=== PATIENT | male | born 1945 | race Caucasian/White ===

== ENCOUNTER 2017-01-23 09:55 | Outpatient (CLI) | payer MEDICARE, OTHER | END 2017-01-23 09:56 | disposition home or self-care (01) | LOC: SC 09:55 | PROVIDERS: ATTEND Nurse Practitioner Family | DX: G47.33 Obstructive sleep apnea (adult) (pediatric) (principal) | CPT/HCPCS: 99214; G0463; 99212 ==

== ENCOUNTER 2018-02-12 13:13 | Outpatient (CLI) | payer MEDICARE, OTHER | END 2018-02-12 13:14 | disposition home or self-care (01) | LOC: SC 13:13 | PROVIDERS: ATTEND Nurse Practitioner Family | DX: G47.33 Obstructive sleep apnea (adult) (pediatric) (principal) | CPT/HCPCS: 99214; G0463; 99212 ==

== ENCOUNTER 2018-03-18 09:22 | Emergency (ER) | payer MEDICARE, OTHER ==
--- NOTE | 2018-03-18 10:16 | ED Physician Documentation ---
History of Present Illness - Stated complaint Stated Complaint: SIDE PX/GLF - Chief complaint Chief Complaint: General - History obtained from History obtained from: Patient, Family - History of Present Illness Timing: How many hours ago (3) Pain level max: 6 Pain level now: 5 - Additonal information Additional information: Patient is a 72-year-old male who was in the tub today when he slipped fell, landing on the edge of the bathtub on his left ribs. Was out later and coughed, felt a pop and shooting pain into the left upper chest and shoulder area. States pain is better when he does not move. Worse with coughing and movement. Has not taken anything for pain. Does not feel short of breath Review of Systems Constitutional: denies: Fever, Chills Throat: denies: Sore throat Cardiac: denies: Palpitations Respiratory: denies: Dyspnea, Cough GI: denies: Vomiting Skin: denies: Rash Musculoskeletal: denies: Neck pain, Back pain Neurologic: denies: Headache PD PAST MEDICAL HISTORY - Past Medical History Past Medical History: Yes Cardiovascular: Hypertension, High cholesterol, Coronary artery disease Respiratory: Sleep apnea Endocrine/Autoimmune: Type 2 diabetes GI: GERD : None HEENT: None Psych: None Musculoskeletal: None - Past Surgical History Past Surgical History: Yes Cardiovascular: Coronary stent Derm: Skin cancer surgery - Present Medications Home Medications: Ambulatory Orders Medication Instructions Recorded Confirmed Aspirin Chewable [St Von 81 mg PO DAILY 10/10/12 02/15/15 Aspirin] Losartan/Hydrochlorothiazide 1 tab PO DAILY 10/10/12 02/15/15 [Hyzaar 100-25 Tablet] Metformin HCl 500 mg PO BID 10/10/12 02/15/15 Nitroglycerin [Nitrostat] 0.4 mg SL DAILY PRN 10/10/12 02/15/15 Rosuvastatin Calcium [Crestor] 5 mg PO DAILY 10/10/12 02/15/15 Carvedilol [Coreg] 11/18/14 02/15/15 Cetirizine HCl [Zyrtec] 10 mg PO DAILY #30 tablet 11/18/14 02/15/15 Gabapentin 300 mg PO TID #90 capsule 02/15/15 Meloxicam [Mobic] 15 mg PO DAILY PRN #20 tablet 03/18/18 - Allergies Allergies/Adverse Reactions: Allergies Allergy/AdvReac Type Severity Reaction Status Date / Time Penicillins Allergy Severe Respiratory Verified 10/10/12 03:26 atorvastatin calcium * Allergy Intermediate Cramps Verified 10/10/12 03:28 [From Lipitor] pravastatin Allergy Intermediate Cramps Verified 10/10/12 03:29 simvastatin [From Zocor] Allergy Intermediate Cramps Verified 10/10/12 03:26 - Social History Does the pt smoke?: No Smoking Status: Never smoker Does the pt drink ETOH?: No Does the pt have substance abuse?: No - Immunizations Immunizations are current?: Yes - POLST Patient has POLST: No PD ED PE NORMAL - Vitals Vital signs reviewed: Yes - General General: Alert and oriented X 3 - HEENT HEENT: Moist mucous membranes - Neck Neck: Supple, no meningeal sign - Cardiac Cardiac: RRR, Strong equal pulses - Respiratory Respiratory: No respiratory distress, Clear bilaterally, Other (TTP L lower posterior ribs. no crepitus.) - Abdomen Abdomen: Normal bowel sounds, Soft, Non tender, Non distended - Derm Derm: Warm and dry - Neuro Neuro: Alert and oriented X 3 Results - Vitals Vitals: Vital Signs - 24 hr 03/18/18 09:37 Temperature 36.7 C Heart Rate 62 Respiratory 16 Rate Blood Pressure 149/79 H O2 Saturation 98 Oxygen O2 Source Room air - Rads (name of study) cxr Radiology: Prelim report reviewed, EMP read contemporaneously, See rad report (Small left pneumothorax without evidence of tension. Possible acute nondisplaced fracture of at least the left 9th rib. ) rpt cxr Radiology: Prelim report reviewed, EMP read contemporaneously, See rad report (Stable 8 mm left apical pneumothorax. Suspect occult hairline fractures lateral aspect left lower ribs. Stable small left extrathoracic air leak. ) PD MEDICAL DECISION MAKING - ED course Complexity details: reviewed results, re-evaluated patient, considered differential, d/w patient, d/w family, d/w quality improvement consultant ED course: Patient is a 72-year-old male who presents to the emergency department and is found to have left-sided rib fracture, possible multiple hairline fractures. Also has a small left apical pneumothorax. Discussed the case with Dr. Eloy Gage, general surgery on-call who recommends watchful waiting at this time. Patient is also very comfortable with this plan. He was observed in the emergency department for several hours, repeat chest x-ray reveals no change in the pneumothorax size. He would like to go home at this time and was given strict return precautions to the patient and his . He will follow-up with Dr. Gage as an outpatient. An order was also written for his outpatient chest x-ray prior to seeing Dr. Gage. Patient and family counseled regarding signs and symptoms for which I believe and urgent re-evaluation would be necessary. Patient with good understanding of and agreement to plan and is comfortable going home at this time This document was made in part using voice recognition software. While efforts are made to proofread this document, sound alike and grammatical errors may occur. Departure - Departure Disposition: Home, Self Care Clinical Impression: Pneumothorax on left Rib fracture Qualifiers: Encounter type: initial encounter Rib fracture type: single rib Fracture type: closed Laterality: left Qualified Code(s): S22.32XA - Fracture of one rib, left side, initial encounter for closed fracture Condition: Good Instructions: ED Fx Rib, ED Pneumothorax Blunt Trauma Follow-Up: Tay Schmidt MD [Primary Care Provider] - Eloy Gage MD [Provider Admit Priv/Credential] - 03/20/18 Prescriptions: Meloxicam [Mobic] 15 mg PO DAILY PRN #20 tablet PRN Reason: pain Comments: Call Dr. Gage's office for an appointment on Sunday. You should have the repeat chest x-ray prior to your visit that day. Return sooner if you worsen including uncontrolled pain or difficulty breathing. We did discuss a chest tube today, but you have elected conservative treatment at this time. Discharge Date/Time: 03/18/18 13:50
--- NOTE | 2018-03-18 10:47 | XRAY Report ---
Reason: fall, L rib pain Procedure Date: 03/18/2018 Accession Number: [id number] / [id number] Procedure: XR - Ribs w/PA Chest LT CPT Code: FULL RESULT: EXAM: LEFT RIB RADIOGRAPHY EXAM DATE: 03/18/2018 10:27 AM. CLINICAL HISTORY: Fall, L rib pain. COMPARISON: None. TECHNIQUE: 1 view of the chest and 2 views of the ribs. FINDINGS: Bones: Possible acute nondisplaced fracture at the lateral aspect of the left ninth rib. No displaced fracture. Lungs: No focal consolidation. Small left pneumothorax with 8 mm pleural separation at the apex. No right pneumothorax. Mediastinum: Heart and mediastinal contours are unremarkable. Other: Small inferior lateral left chest wall subcutaneous gas centered over the 8th through 10th ribs. IMPRESSION: 1. Small left pneumothorax without evidence of tension. 2. Possible acute nondisplaced fracture of at least the left 9th rib. RADIA The above findings were discussed with Dr. Onesimo Dumont by Dr. Maximus Salazar at 10:40 hrs on 03/18/18.
[2018-03-18 12:36] VITALS: BP 118/74
--- NOTE | 2018-03-18 13:16 | XRAY Report ---
Reason: upright, L ptx compare to earlier. Procedure Date: 03/18/2018 Accession Number: [id number] / [id number] Procedure: XR - Chest 1 View X-Ray CPT Code: 26049 FULL RESULT: EXAM: CHEST RADIOGRAPHY EXAM DATE: 03/18/2018 12:59 PM. CLINICAL HISTORY: Left-sided chest pain. Follow-up left pneumothorax. COMPARISON: RIBS W/PA CHEST LT 03/18/2018 10:18 AM. TECHNIQUE: 1 view. FINDINGS: Lungs/Pleura: Stable 8 mm left apical pneumothorax. New small amount of pleural thickening left lower lateral chest wall in the area of the lateral aspects of the left seventh, eighth and ninth ribs. No fractures confidently identified. Stable small amount of left extrathoracic air in the area of the pleural thickening. Mediastinum: Within exam limitations, the cardiomediastinal contour is normal. Other: None. IMPRESSION: 1. Stable 8 mm left apical pneumothorax. 2. Suspect occult hairline fractures lateral aspect left lower ribs. 3. Stable small left extrathoracic air leak. RADIA
[2018-03-18] MEDS ORDERED: LIDOCAINE PATCH 5% TOP STA (13:32)
[2018-03-18] MEDS ORDERED: MELOXICAM 7.5 MG TABLET PO STA (13:43)
[2018-03-19] MEDS ORDERED: MELOXICAM 7.5 MG TABLET PO SCH (09:00)
== END 2018-03-18 13:50 | disposition home or self-care (01) ==
LOC: ED 09:22
DX: S27.0XXA Traumatic pneumothorax, initial encounter (principal); S22.32XA Fracture of one rib, left side, initial encounter for closed fracture; M25.512 Pain in left shoulder; W18.2XXA Fall in (into) shower or empty bathtub, initial encounter; Y93.E1 Activity, personal bathing and showering; I10 Essential (primary) hypertension; E11.9 Type 2 diabetes mellitus without complications; Z79.84 Long term (current) use of oral hypoglycemic drugs; Z79.82 Long term (current) use of aspirin
CPT/HCPCS: 71045; 71101; 99283; 99284; A9270

== ENCOUNTER 2018-03-20 11:01 | Outpatient (CLI) | payer MEDICARE, OTHER ==
--- NOTE | 2018-03-20 16:00 | XRAY Report ---
Reason: PNEUMOTHORAX Procedure Date: 03/20/2018 Accession Number: [id number] / [id number] Procedure: XR - Chest 2 View X-Ray CPT Code: 17329 FULL RESULT: EXAM: CHEST RADIOGRAPHY EXAM DATE: 03/20/2018 11:43 AM. CLINICAL HISTORY: PNEUMOTHORAX. COMPARISON: Chest 03/18/2018. TECHNIQUE: 2 views. FINDINGS: Lungs/Pleura: No focal opacities evident. No pleural effusion. There appears to be a very subtle edge at the lateral left apex which could represent a very small persistent pneumothorax. Normal volumes. Mediastinum: Heart and mediastinal contours are unremarkable. IMPRESSION: Possible residual tiny left pneumothorax RADIA
== END 2018-03-20 11:02 | disposition home or self-care (01) ==
LOC: DI 11:01
PROVIDERS: ATTEND Internal Medicine Gastroenterology
DX: J93.9 Pneumothorax, unspecified (principal)
CPT/HCPCS: 71046

== ENCOUNTER 2018-03-24 23:11 | Emergency (ER) | payer MEDICARE, OTHER ==
--- NOTE | 2018-03-24 23:14 | ED Physician Documentation ---
History of Present Illness - Stated complaint Stated Complaint: HIGH BP/LOW PULSE RATE - History obtained from History obtained from: Patient, Family - History of Present Illness Timing: Today Pain level now: 0 Improved by: nothing Worsened by: no exacerbating factors - Additonal information Additional information: patient was measuring blood sugar and blood pressure as per his routine prior to going to sleep. Blood sugar was 135. He was concerned that his blood pressure was 192/91. He waited 20 minutes and rechecked blood pressure, found it was now 197/97 with pulse 62 and thus came to ED. Only symptoms are "mild pulsating in ears" (per patient) and very mild dizziness/lightheadedness. Denies chest pain/pressure/tightness, denies dyspnea. Review of Systems Eyes: denies: Loss of vision, Decreased vision Cardiac: reports: Reviewed and negative Respiratory: reports: Reviewed and negative GI: reports: Reviewed and negative Musculoskeletal: reports: Reviewed and negative Neurologic: reports: Reviewed and negative PD PAST MEDICAL HISTORY - Past Medical History Cardiovascular: Hypertension, High cholesterol, Coronary artery disease Respiratory: Sleep apnea Endocrine/Autoimmune: Type 2 diabetes GI: GERD : None HEENT: None Psych: None Musculoskeletal: None - Past Surgical History Past Surgical History: Yes Cardiovascular: Coronary stent Derm: Skin cancer surgery - Present Medications Home Medications: Ambulatory Orders Medication Instructions Recorded Confirmed Aspirin Chewable [St Von 81 mg PO DAILY 10/10/12 02/15/15 Aspirin] Losartan/Hydrochlorothiazide 1 tab PO DAILY 10/10/12 02/15/15 [Hyzaar 100-25 Tablet] Metformin HCl 500 mg PO BID 10/10/12 02/15/15 Nitroglycerin [Nitrostat] 0.4 mg SL DAILY PRN 10/10/12 02/15/15 Rosuvastatin Calcium [Crestor] 5 mg PO DAILY 10/10/12 02/15/15 Carvedilol [Coreg] 11/18/14 02/15/15 Cetirizine HCl [Zyrtec] 10 mg PO DAILY #30 tablet 11/18/14 02/15/15 Gabapentin 300 mg PO TID #90 capsule 02/15/15 Meloxicam [Mobic] 15 mg PO DAILY PRN #20 tablet 03/18/18 - Allergies Allergies/Adverse Reactions: Allergies Allergy/AdvReac Type Severity Reaction Status Date / Time Penicillins Allergy Severe Respiratory Verified 03/24/18 23:21 atorvastatin calcium * Allergy Intermediate Cramps Verified 03/24/18 23:21 [From Lipitor] pravastatin Allergy Intermediate Cramps Verified 03/24/18 23:21 simvastatin [From Zocor] Allergy Intermediate Cramps Verified 03/24/18 23:21 - Social History Does the pt smoke?: No Smoking Status: Never smoker Does the pt drink ETOH?: No Does the pt have substance abuse?: No - Immunizations Immunizations are current?: Yes - POLST Patient has POLST: No PD ED PE NORMAL - Vitals Vital signs reviewed: Yes - General General: Alert and oriented X 3, No acute distress, Well developed/nourished - HEENT HEENT: Moist mucous membranes - Cardiac Cardiac: RRR, No murmur, No gallop, No rub - Respiratory Respiratory: No respiratory distress, Clear bilaterally - Abdomen Abdomen: Soft, Non tender - Derm Derm: Normal color - Extremities Extremities: No edema - Neuro Neuro: Alert and oriented X 3, furnishings conservator 2-12 intact, No motor deficit, No sensory deficit, Normal speech Eye Opening: Spontaneous Motor: Obeys Commands Verbal: Oriented GCS Score: 15 Results - Vitals Vitals: Vital Signs - 24 hr 03/24/18 03/24/18 03/25/18 23:18 23:34 00:06 Temperature 36.2 C L Heart Rate 65 59 L Respiratory 18 14 Rate Blood Pressure 183/84 H 171/77 H Blood Pressure 182/84 H [Left] Blood Pressure 189/86 H [Right] O2 Saturation 98 96 03/25/18 00:39 Temperature Heart Rate 56 L Respiratory 16 Rate Blood Pressure 169/79 H Blood Pressure [Left] Blood Pressure [Right] O2 Saturation 93 Oxygen O2 Source Room air - Labs Labs: Laboratory Tests 03/24/18 03/24/18 03/24/18 23:28 23:28 23:28 WBC 6.5 RBC 4.54 L Hgb 13.6 L Hct 39.0 L MCV 86.1 MCH 30.1 MCHC 34.9 RDW 13.6 Plt Count 268 MPV 7.2 L Neut # (Auto) 3.3 Lymph # (Auto) 2.1 [place] # (Auto) 0.7 Eos # (Auto) 0.3 Baso # (Auto) 0.0 Absolute Nucleated RBC 0.00 Nucleated RBC % 0.1 Sodium 133 L Potassium 3.8 Chloride 96 L Carbon Dioxide 28 Anion Gap 9.0 BUN 20 Creatinine 1.0 Estimated GFR (MDRD) 74 L Glucose 121 H Calcium 8.8 Troponin I < 0.04 PD MEDICAL DECISION MAKING - ED course Complexity details: reviewed results, re-evaluated patient, considered differential, d/w patient, d/w family Departure - Departure Disposition: 01 Home, Self Care Clinical Impression: Hypertension Condition: Good Instructions: ED Hypertension Conf Out Of Control Follow-Up: Tay Schmidt MD [Primary Care Provider] - Discharge Date/Time: 03/25/18 01:05
[2018-03-24 23:46] LABS: BASOPHILS % (AUTO) 0.6 %; EOSINOPHILS # (AUTO) 0.3 10^3/uL (0.0-0.7); EOSINOPHILS % (AUTO) 4.9 %; HGB - HEMOGLOBIN 13.6 g/dL (14.0-18.0); LYMPHOCYTES # (AUTO) 2.1 10^3/uL (1.5-3.5); LYMPHOCYTES % (AUTO) 32.7 %; MEAN CORPUSCULAR HEMOGLOBIN 30.1 pg (27.0-31.0); MEAN CORPUSCULAR HGB CONC 34.9 g/dL (32.0-36.0); MEAN CORPUSCULAR VOLUME 86.1 fL (80.0-94.0); MEAN PLATELET VOLUME 7.2 fL (7.4-11.4); MONOCYTES # (AUTO) 0.7 10^3/uL (0.0-1.0); MONOCYTES % (AUTO) 11.4 %; NEUTROPHILS # (AUTO) 3.3 10^3/uL (1.5-6.6); NEUTROPHILS % (AUTO) 50.4 %; PLT - PLATELET COUNT 268 10^3/uL (130-450); RED BLOOD COUNT 4.54 10^6/uL (4.70-6.10); RED CELL DISTRIBUTION WIDTH 13.6 % (12.0-15.0); WHITE BLOOD COUNT 6.5 x10^3/uL (4.8-10.8)
[2018-03-24 23:50] LABS: CALCIUM 8.8 mg/dL (8.5-10.3)
[2018-03-25 00:40] VITALS: BP 169/79
== END 2018-03-25 01:05 | disposition home or self-care (01) ==
LOC: ED 23:11
DX: I10 Essential (primary) hypertension (principal); E11.9 Type 2 diabetes mellitus without complications; Z79.84 Long term (current) use of oral hypoglycemic drugs; Z79.82 Long term (current) use of aspirin
CPT/HCPCS: 36415; 80048; 84484; 85025; 99283

== ENCOUNTER 2019-03-05 09:07 | Outpatient (CLI) | payer MEDICARE, OTHER ==
[2019-03-05 10:09] VITALS: BP 134/60
--- NOTE | 2019-03-05 10:09 | SLEEP CARE CONSULTATION ---
Information from patient questionnaire entered by Li Mendoza. I have reviewed and concur with the information entered by Li Mendoza. This document represents the service I personally performed and the decisions made by me, Irma Moulton, RN, MSN, [employer]ICIAN. History of Present Illness Previous diagnosis: Severe, Obstructive Sleep Apnea-Hypopnea Syndrome AHI: 45 Reason for CPAP/BiPAP follow up: annual Equipment type: CPAP Equipment obtained from: [employer] Mask style: Nasal (wisp) Mask brand: Respironics Backup mask available: Yes Last cushion change: a couple days ago with filter Prior sleep studies: Yes Year and Where: 2009 [facility] CPAP Compliance Data - Data Reviewed with Patient Average duration of nightly device use: 6h 20m Compliance rate %: 94.4 Current pressure setting (cmH2O): 5-10 Humidity settin Heated hose settin Average residual AHI: 2.2 Subjective Missed days of use due to: reports: illness (hospitalized unexpectedly for pacemaker insertion) Patient concerns: reports: condensation in mask/hose (rare - adjusts heated hose), nasal congestion (chronic - does not interfer with CPAP - uses Afrin rarely - informed of risks and not to use more than 3 days), dry mouth, nose, throat (rare ). denies: aerophagia, mask discomfort, air blowing in eyes, mask leak noise, epistaxis Observed to snore while using device: No Current pressure setting perceived as: comfortable On therapy, patient: reports: sleeping better, awakening more refreshed, being more awake and alert during the day, more rested overall (especially since pacemaker implant). denies: drowsiness while driving Initial Lamont Sleepiness Scale score: 3 Current Lamont Sleepiness Scale score: 8 Allergies and Home Medications Known drug allergies: Yes (penicillin, some statins) Home medication list reviewed: Yes Allergy and home medication list: Medication Name (generic/name brand) Strength & Dosage Crestor (Rosuvastatin) 10mg tab one daily Hyzaar (Hydrochlorothiazide-Losartan) 25-100mg tab one daily Metformin HCL 500mg tab one twice daily Carvedilol 12.5mg tab twice daily Montelucast 10mg daily Aspirin 81mg Allergies: Penicillin V Potassium - some statins Review of Systems Review of systems same as previous: No (shortness of breath and fatigue and holter monitor indicating pacemaker ) Physical Exam Blood Pressure: 134/60 Cuff size: long Heart Rate: 63 O2 Saturation: 97 Height: 6 ft 0.5 in Weight: 238 lb 3.2 oz Weight change since last visit: 12 Body Mass Index: 31.8 BMI Classification: Obesity Class 1 Impression and Plan 1. Obstructive Sleep Apnea-Hypopnea Syndrome, severe, with good treatment compliance and good apnea control. On CPAP therapy, the patient has better sleep quality and is more rested overall. He has been losing weight with diet changes for health. We discussed the impact of his obesity to his sleep apnea risk / pressure requirements, diabetes and overall health. I showed him where his current weight put him on the BMI chart. He is advised to continue to lose weight and informed of symptoms to report for pressure adjustment. In discussion of treatment for nasal congestion, patient advised not to use Afrin more than 3 days as it will exacerbate symptoms. Patient replied he only uses 1-2 days in a row on rare occasion. Patient's apnea severity and rationale for treatment to reduce apnea, improve sleep quality and reduce cardiovascular and cerebrovascular events was reviewed. I also reviewed the benefit of consistent device use of CPAP for his hypertension, cardiac disease, arrhythmia, diabetes. I also reviewed PaP cleaning methods when inquiring of current habits and reference given. He is advised to wash hose weekly and not randomly with rationale. * Continue CPAP pressure at 5-10 cmH2O Notify me if snoring with mask or feeling that the pressure is too much or too little * Attempt to lose weight * Return for follow up in 1 year , or sooner if concerns arise I spent 100% of this 28 minute visit face to face with the patient with greater than 50% of this was spent time counseling the patient and coordination of care.
== END 2019-03-05 09:08 | disposition home or self-care (01) ==
LOC: SC 09:07
PROVIDERS: ATTEND Nurse Practitioner Family
DX: G47.33 Obstructive sleep apnea (adult) (pediatric) (principal); E66.9 Obesity, unspecified; Z68.31 Body mass index [BMI] 31.0-31.9, adult
CPT/HCPCS: 99214; G0463; 99212

== ENCOUNTER 2019-04-28 13:46 | Emergency (ER) | payer MEDICARE, OTHER ==
[2019-04-28] MEDS ORDERED: BUFFERED LIDOCAINE 10 ML SYRINGE SUBQ STA (15:05)
--- NOTE | 2019-04-28 15:06 | ED Physician Documentation ---
PD HPI LOWER EXT INJURY - Stated complaint Stated Complaint: RT KNEE PX - Chief complaint Chief Complaint: Ext Problem - History obtained from History obtained from: Patient (6 days of painful atraumatic swelling on the front of the right knee without fevers or chills.) Review of Systems Constitutional: denies: Fever, Chills Cardiac: reports: Reviewed and negative Respiratory: reports: Reviewed and negative PD PAST MEDICAL HISTORY - Past Medical History Past Medical History: Yes Cardiovascular: Hypertension, High cholesterol, Coronary artery disease Respiratory: Sleep apnea Neuro: None Endocrine/Autoimmune: Type 2 diabetes GI: GERD : None HEENT: None Psych: None Musculoskeletal: None Derm: None - Past Surgical History Past Surgical History: Yes Cardiovascular: Coronary stent, Pacemaker Derm: Skin cancer surgery - Present Medications Home Medications: Ambulatory Orders Medication Instructions Recorded Confirmed Aspirin Chewable [St Von 81 mg PO DAILY 10/10/12 02/15/15 Aspirin] Losartan/Hydrochlorothiazide 1 tab PO DAILY 10/10/12 02/15/15 [Hyzaar 100-25 Tablet] Metformin HCl 500 mg PO BID 10/10/12 02/15/15 Nitroglycerin [Nitrostat] 0.4 mg SL DAILY PRN 10/10/12 02/15/15 Rosuvastatin Calcium [Crestor] 5 mg PO DAILY 10/10/12 02/15/15 Carvedilol [Coreg] 11/18/14 02/15/15 Cetirizine HCl [Zyrtec] 10 mg PO DAILY #30 tablet 11/18/14 02/15/15 Gabapentin 300 mg PO TID #90 capsule 02/15/15 Meloxicam [Mobic] 15 mg PO DAILY PRN #20 tablet 03/18/18 Cephalexin [Keflex] 500 mg PO Q6H #28 capsule 04/28/19 - Allergies Allergies/Adverse Reactions: Allergies Allergy/AdvReac Type Severity Reaction Status Date / Time Penicillins Allergy Severe Respiratory Verified 04/28/19 14:05 atorvastatin calcium * Allergy Intermediate Cramps Verified 04/28/19 14:05 [From Lipitor] pravastatin Allergy Intermediate Cramps Verified 04/28/19 14:05 simvastatin [From Zocor] Allergy Intermediate Cramps Verified 04/28/19 14:05 - Social History Does the pt smoke?: No Smoking Status: Never smoker Does the pt drink ETOH?: No Does the pt have substance abuse?: No - Immunizations Immunizations are current?: Yes - POLST Patient has POLST: No PD ED PE NORMAL - Vitals Vital signs reviewed: Yes - General General: Alert and oriented X 3, No acute distress - Extremities Extremities: Other (He has what appears to be septic prepatellar bursitis. No bony tenderness of the right knee. Range of motion is normal. His gait is normal.) - Neuro Neuro: Alert and oriented X 3, Normal speech Results - Vitals Vitals: Vital Signs - 24 hr 04/28/19 14:06 Temperature 36.4 C L Heart Rate 59 L Respiratory 18 Rate Blood Pressure 141/67 H O2 Saturation 99 Oxygen O2 Source Room air Procedures - Abscess I&D (location) R prepatellar bursa Preparation: Chlorhexadine, Lidocaine 1% Incision: Incised with scalpel, Loculations broken, Packed (with 1/4" packing), Culture obtained. No: Purulent drainage (clearish, about 8ml) Other: Pt tolerated well, Dressing applied, Antibiotic prescribed Departure - Departure Disposition: 01 Home, Self Care Clinical Impression: Bursitis, prepatellar, right Condition: Good Record reviewed to determine appropriate education?: Yes Instructions: ED Bursitis Prescriptions: Cephalexin [Keflex] 500 mg PO Q6H #28 capsule Comments: We are performing a wound culture, the results should be done in 48-72 hours. If antibiotic change is necessary we will call you. Return if worse in the meantime, especially if you develop increased pain, fevers, cannot keep down the medication. Otherwise follow-up with your physician in approximately 2-3 days For recheck and packing removal.
[2019-04-28 15:41] VITALS: BP 139/70
== END 2019-04-28 15:41 | disposition home or self-care (01) ==
LOC: ED 13:46
DX: M70.41 Prepatellar bursitis, right knee (principal); I10 Essential (primary) hypertension; E11.9 Type 2 diabetes mellitus without complications; Z79.84 Long term (current) use of oral hypoglycemic drugs; Z79.82 Long term (current) use of aspirin
CPT/HCPCS: 27301; 87070; 87181; 87205; 99283

== ENCOUNTER 2020-03-02 08:25 | Outpatient (CLI) | payer MEDICARE, OTHER ==
--- NOTE | 2020-03-02 09:05 | SLEEP CARE CONSULTATION ---
Information from patient questionnaire entered by Jael Ji. I have reviewed and concur with the information entered by Jael Ji. This document represents the service I personally performed and the decisions made by , Alia Cisneros ARNP. History of Present Illness Service Date and Time: 03/02/2020824 Previous diagnosis: Severe, Obstructive Sleep Apnea-Hypopnea Syndrome AHI: 45 (in 2009) Reason for follow up: annual (Last seen 2018) Equipment type: CPAP Equipment obtained from: [employer] (getting supplies as needed) Mask style: Nasal (wisp) Backup mask available: Yes (old mask) Last cushion change: few days ago Prior sleep studies: Yes Year and Where: 2009 - [facility] HPI additional information: CUUAHTEMOC ABREU JR was diagnosed to have severe, AHI 45, obstructive sleep apnea- hypopnea syndrome and returned today for CPAP therapy annual follow-up. Sleep Study - Results Prior sleep studies: Yes Year and Where: 2009 [facility] CPAP Compliance Data - Data Reviewed with Patient Average duration of nightly device use: 6.75 Compliance rate %: 99.4 (180 days) Current pressure setting (cmH2O): 5-10 Humidity settin Heated hose settin Average residual AHI: 2.8 Central apnea: 0.0 Obstructive apnea: 0.1 Average large leak: 30 sec Subjective Patient concerns: reports: nasal congestion. denies: aerophagia, mask discomfort, air blowing in eyes, mask leak noise, condensation in mask/hose, dry mouth, nose, throat, epistaxis, other Observed to snore while using device: No Current pressure setting perceived as: comfortable On therapy, patient: reports: sleeping better, awakening more refreshed, being more awake and alert during the day, more rested overall. denies: drowsiness while driving Initial [place] Sleepiness Scale score: 3 (in 2012) Current [place] Sleepiness Scale score: 6 Allergies and Home Medications Drug allergies reviewed: Yes (penicillin, statins) Home medication list reviewed: Yes (stopped HCTZ) Allergy and home medication list: aspirin cetirizine montelukast losartan rosuvastatin Metformin carvedilol gabapentin eliquis for irregular heartbeat Review of Systems Review of systems same as previous: No (August 2019, heart monitor showing irregular heartrate with pauses (7 secs)) Cardiovascular: reports: irregular heart rate or pulse (Pacemaker placed in September 2019) Physical Exam Heart Rate: 60 O2 Saturation: 96 Height: 6 ft 1 in Weight: 245 lb Body Mass Index: 32.3 BMI Classification: Obese Impression and Plan 1. Obstructive Sleep Apnea-Hypopnea Syndrome, severe, with good treatment compliance and good apnea control. On CPAP therapy, there is improved sleep quality and feels more rested overall. He is doing well without any issues on his CPAP therapy. He did have an arrhythmia found in on a heart monitor with a 7 second pause and was fitted with a pacemaker. He is also on Eliquis. He is following up with cardiology for this condition. Patient's apnea severity and rationale for treatment to reduce apnea, improve sleep quality and reduce cardiovascular and cerebrovascular events was reviewed. I also reviewed the benefit of consistent device use of CPAP for hypertension, cardiac disease, arrhythmia, and diabetes. * Continue auto CPAP pressure at 5-10 cmH2O * Notify me if snoring with mask or feeling that the pressure is too much or too little * Attempt to lose weight * Call this office if any problems using CPAP * Return for follow up in 1 year, or sooner if concerns arise Time Spent with Patient (minutes): 23
== END 2020-03-02 08:26 | disposition home or self-care (01) ==
LOC: SC 08:25
PROVIDERS: ATTEND Nurse Practitioner Family
DX: G47.33 Obstructive sleep apnea (adult) (pediatric) (principal); E66.9 Obesity, unspecified; Z68.32 Body mass index [BMI] 32.0-32.9, adult
CPT/HCPCS: 99213; G0463; 99212

== ENCOUNTER 2020-07-29 14:49 | Emergency (ER) | payer MEDICARE, OTHER ==
[2020-07-29] MEDS ORDERED: TETANUS/DIPHTHERIA/PERTUSSIS 0.5 ML SYRINGE IM ONE (15:09)
--- NOTE | 2020-07-29 16:20 | XRAY Report ---
PROCEDURE: Finger(s) LT INDICATIONS: avulsed tissue TECHNIQUE: PA view of the hand and 2 views of the index finger obtained. COMPARISON: None FINDINGS: Bones: There is no dilatation of the tuft of the second distal phalanx. Moderate degenerative changes are seen at the first metacarpophalangeal joint. Soft tissues: Soft tissue irregularity is seen at the distal second finger with overlying dressing ma terial. No definite radiopaque foreign body is identified. IMPRESSION: Amputation of the distal tuft of the second distal phalanx with overlying soft tissue irregularity. Reviewed by: Juan Gordon MD on 07/29/2020 4:18 PM PST Approved by: Juan Gordon MD on 07/29/2020 4:18 PM PST Station ID: [id number]
[2020-07-29] MEDS ORDERED: TRANEXAMIC ACID 1,000 MG/10 ML VIAL NAS STA (16:36)
[2020-07-29] MEDS ORDERED: BUFFERED LIDOCAINE 10 ML SYRINGE SUBQ STA (16:48)
--- NOTE | 2020-07-29 17:32 | ED Physician Documentation ---
History of Present Illness - Stated complaint Stated Complaint: LT FINGER INJ - Chief complaint Chief Complaint: Laceration - History obtained from History obtained from: Patient - Additonal information Additional information: 75yM with pmh afib on eliquis p/w L distal finger amputation just [employer] while using power tool with exposure of distal phalanx. patient unsure of last tdap. pain is constant throbbing mild, nonradiating, localized to L second finger at distal aspect. denies foreign body or other injury. Review of Systems Skin: reports: Laceration (s) Musculoskeletal: reports: Extremity pain Neurologic: denies: Numbness PD PAST MEDICAL HISTORY - Past Medical History Cardiovascular: Hypertension, High cholesterol, Coronary artery disease Respiratory: Sleep apnea Neuro: None Endocrine/Autoimmune: Type 2 diabetes GI: GERD : None HEENT: None Psych: None Musculoskeletal: None Derm: None - Past Surgical History Past Surgical History: Yes Cardiovascular: Coronary stent, Pacemaker Derm: Skin cancer surgery - Present Medications Home Medications: Ambulatory Orders Medication Instructions Recorded Confirmed Aspirin Chewable [St Von 81 mg PO DAILY 10/10/12 07/29/20 Aspirin] Metformin HCl 500 mg PO BID 10/10/12 07/29/20 Rosuvastatin Calcium [Crestor] 5 mg PO DAILY 10/10/12 07/29/20 Carvedilol [Coreg] 37.5 mg PO DAILY 11/18/14 07/29/20 Cetirizine HCl [Zyrtec] 10 mg PO DAILY #30 tablet 11/18/14 07/29/20 Gabapentin 300 mg PO TID #90 capsule 02/15/15 07/29/20 Apixaban [Eliquis] 5 mg PO BID 07/29/20 07/29/20 Montelukast [Singulair] 10 mg PO DAILY 07/29/20 07/29/20 cephALEXin [Keflex] 500 mg PO Q6H #28 07/29/20 - Allergies Allergies/Adverse Reactions: Allergies Allergy/AdvReac Type Severity Reaction Status Date / Time Penicillins Allergy Severe Respiratory Verified 07/29/20 14:58 atorvastatin calcium * Allergy Intermediate Cramps Verified 07/29/20 14:58 [From Lipitor] pravastatin Allergy Intermediate Cramps Verified 07/29/20 14:58 simvastatin [From Zocor] Allergy Intermediate Cramps Verified 07/29/20 14:58 - Social History Does the pt smoke?: No Smoking Status: Never smoker Does the pt drink ETOH?: No Does the pt have substance abuse?: No - Immunizations Immunizations are current?: Yes - POLST Patient has POLST: No PD ED PE NORMAL - Vitals Vital signs reviewed: Yes - General General: Alert and oriented X 3, No acute distress - Extremities Extremities: Other (L second finger amputation just distal to dip joint without nail matrix involvement. distal phalanx visibly exposed. mild oozing blood, otherwise hemostatic) Results - Vitals Vitals: Vital Signs - 24 hr 07/29/20 07/29/20 07/29/20 15:00 15:36 17:35 Temperature 36.3 C L 36.7 C 36.4 C L Heart Rate 60 62 62 Respiratory 12 14 14 Rate Blood Pressure 181/80 H 162/76 H 158/77 H O2 Saturation 100 100 99 07/29/20 17:46 Temperature Heart Rate 64 Respiratory 14 Rate Blood Pressure 154/82 H O2 Saturation 99 Oxygen O2 Source Room air Procedures - Laceration (location) Finger left Length in cm: 1 Wound type: Irregular, Into subcut fat, Exposure of bone Neurovascular status: Sensory intact, Motor intact, Other (bleeding controlled with direct pressure, txa, and finger tourniquet. bone rangeur used to chip away at distal phalanx. extensive irrigation undertaken.) Anesthesia: Lidocaine 1% (digital block), With bicarb, Volume - enter ml (4) Wound preparation: Betadine, Irrigated copiously NS, Wound explored, To the base, debridement of wound edges (traumatic laceration/avulsion), Multiple flaps aligned, Extensive undermining Skin layer closure: Nylon, Interrupted, Size #-0 - enter number (4), Sutures - enter # (5) Other: Patient tolerated well, No complications, Neurovascular intact, Dressing applied, Tetanus booster given PD MEDICAL DECISION MAKING - ED course ED course: d/w Dr. Krueger who recommended I irrigate copiously, cut away bone of distal phalanx, and align the flaps of the amputated finger. this was done without incident and then xeroform gauze soaked in txa was applied. ebl minimal. patient tolerated well. he will f/u with ortho in 1 week for wound check. strict return precautions given. Departure - Departure Disposition: 01 Home, Self Care Clinical Impression: Amputation of finger Condition: Good Instructions: ED Laceration All Follow-Up: Frantz Krueger MD [Provider Admit Priv/Credential] - Prescriptions: cephALEXin [Keflex] 500 mg PO Q6H #28 Comments: You were seen in the emergency department for amputated index finger. We chipped off the bone and sewed up the stump after cleaning thoroughly. You also got a tetanus shot. take your antibiotics. Keep an eye out for the signs of infection we discussed. return to the ED for any new or worsening symptoms or other concerns. Follow up in orthopedics clinic with Dr. Krueger in 1 week for wound check. Your stitches should be removed in 14 days either here or in clinic/urgent care. Discharge Date/Time: 07/29/20 17:47
[2020-07-29 17:47] VITALS: BP 154/82
== END 2020-07-29 17:47 | disposition home or self-care (01) ==
LOC: ED 14:49
DX: S68.111A Complete traumatic metacarpophalangeal amputation of left index finger, initial encounter (principal); W29.8XXA Contact with other powered hand tools and household machinery, initial encounter; E11.9 Type 2 diabetes mellitus without complications; Z79.84 Long term (current) use of oral hypoglycemic drugs
CPT/HCPCS: 12041; 90471; 99283

== ENCOUNTER 2021-02-08 09:03 | Outpatient (CLI) | payer MEDICARE, OTHER ==
--- NOTE | 2021-02-08 09:50 | SLEEP CARE CONSULTATION ---
Information from patient questionnaire entered by Jael Ji. I have reviewed and concur with the information entered by Jael Ji. This document represents the service I personally performed and the decisions made by , Alia Cisneros ARNP. History of Present Illness Service Date and Time: 02/08/2021 0903 Previous diagnosis: Severe, Obstructive Sleep Apnea-Hypopnea Syndrome AHI: 45 (in 2009) Reason for follow up: annual (last seen 02/2020) Equipment type: CPAP Equipment obtained from: [employer] (getting supplies as needed) Mask style: Nasal Mask brand: Respironics (wisp) Backup mask available: Yes (old mask) Last cushion change: not sure, maybe a month ago Prior sleep studies: Yes Year and Where: 2009 - [facility] Type of Sleep Study: Polysomnography HPI additional information: CUAUHTEMOC ABREU JR was diagnosed to have severe, AHI 45, obstructive sleep apnea- hypopnea syndrome and returned today for CPAP therapy annual follow-up. CPAP Compliance Data - Data Reviewed with Patient Average duration of nightly device use: 7 hr 10 min Compliance rate %: 99.4 (180 days) Current pressure setting (cmH2O): 5-10 Humidity settin Heated hose settin Average residual AHI: 3.3 Average large leak: 39 sec Subjective Patient concerns: reports: nasal congestion (he has chronic rhinitis), dry mouth, nose, throat (dry mouth). denies: aerophagia, mask discomfort, air blowing in eyes, mask leak noise, condensation in mask/hose, epistaxis, other Observed to snore while using device: No Current pressure setting perceived as: comfortable On therapy, patient: reports: sleeping better, awakening more refreshed, being more awake and alert during the day, more rested overall. denies: drowsiness while driving Initial [place] Sleepiness Scale score: 3 (in 2012) Current [place] Sleepiness Scale score: 5 Allergies and Home Medications Home medication list reviewed: Yes (no changes) Review of Systems Review of systems same as previous: Yes (left thumb partial removal due to melanoma) Physical Exam Heart Rate: 65 O2 Saturation: 97 Height: 6 ft 1 in Weight: 243 lb Body Mass Index: 32.0 BMI Classification: Obese Impression and Plan 1. Obstructive Sleep Apnea-Hypopnea Syndrome, severe, with excellent treatment compliance and good apnea control. On CPAP therapy, the patient has better sleep quality and is more rested overall. Patient has already registered their device for the recall. Patient denies any black particles seen in machine or hoses, any unusual odors coming from device. Patient has not experienced any physical symptoms such as upper airway irritation, headache, skin or eye irritation, asthma, nausea/vomiting, difficulty breathing or chest pain. Patient informed that they may use an inline CPAP filter that they can obtain online to reduce chance of any particles being inhaled or ingested. We discussed thoroughly the health risks of not using the CPAP versus continuing use with the filter in place. If patient is not able to sleep due to waking up choking, gasping for air or other respiratory distress that they may decide to continue using it until it is either replaced or repaired. Since the patients current machine is at least 5 years old the patient is opting to update their device with a device that is not on the recall. Patient voiced understanding and agreement with plan. Patient's apnea severity and rationale for treatment to reduce apnea, improve sleep quality and reduce cardiovascular and cerebrovascular events was reviewed. I also reviewed the benefit of consistent device use of CPAP for hypertension, cardiac disease, arrhythmia, and diabetes. Patient was encouraged to lose weight for their overall health and to reduce apneas. Patient was encouraged to lose weight for their overall health and to reduce apneas. * Continue auto CPAP pressure at 5-10 cmH2O * Update machine and supplies * Notify me if snoring with mask or feeling that the pressure is too much or too little * Attempt to lose weight * Call this office if any problems using CPAP * Return for follow up one month after obtaining new machine, or sooner if concerns arise Counseling Topics: Spare mask, Weight loss health impact Visit Type: In Office Time Spent with Patient (minutes): 21 Provider Statement: I spent 100% of the Face to Face Visit with the patient with greater than 50% spent counseling the patient and coordination of care.
== END 2021-02-08 09:04 | disposition home or self-care (01) ==
LOC: SC 09:03
PROVIDERS: ATTEND Nurse Practitioner Family
DX: G47.33 Obstructive sleep apnea (adult) (pediatric) (principal); E66.9 Obesity, unspecified; Z68.32 Body mass index [BMI] 32.0-32.9, adult
CPT/HCPCS: 99213; G0463; 99212

== ENCOUNTER 2022-05-24 10:42 | Outpatient (CLI) | payer MEDICARE, OTHER ==
[2022-05-24 11:19] VITALS: BP 124/70
--- NOTE | 2022-05-24 11:19 | SLEEP CARE CONSULTATION ---
Information from patient questionnaire entered by Shama Obrien. I have reviewed and concur with the information entered by Shama Obrien. This document represents the service I personally performed and the decisions made by me, Alia Cisneros ARNP. History of Present Illness Service Date and Time: 05/24/2022 1042 Previous diagnosis: Severe, Obstructive Sleep Apnea-Hypopnea Syndrome AHI: 45 (in 2009) Reason for follow up: annual (LAST SEN 02/2021) Equipment type: CPAP (DREAMSTATION 2) Equipment obtained from: [employer] (getting supplies as needed) Mask style: Nasal Mask brand: Respironics (Wisp) Backup mask available: Yes (old mask) Last cushion change: 1 week Prior sleep studies: Yes Year and Where: 2009 - [facility] Type of Sleep Study: Polysomnography HPI additional information: CUAUHTEMOC ABREU JR was diagnosed to have severe, AHI 45.0, obstructive sleep apnea- hypopnea syndrome and returned today for CPAP therapy annual follow-up. Sleep Study - Results Type of Sleep Study: Polysomnography Prior sleep studies: Yes Year and Where: 2009 - [facility] CPAP Compliance Data - Data Reviewed with Patient Average duration of nightly device use: 7 HRS 25 MIN 44 SEC Compliance rate %: 97.2 (11/23/21-05/21/22; 175/180 days used) Current pressure setting (cmH2O): 5-10 Average residual AHI: 2.5 Central apnea: 0 Obstructive apnea: 0.1 Hypopnea: 2.4 Compliance data discussion: He received a Dreamstation 2 and has been using about 1 month. He has had issues with the heated hose not working, did get it checked out but it seemed to work until he put in his SD card. He had to return his old Dreamstation and older CPAP to [employer] so he does not have a backup anymore. Subjective Missed days of use due to: reports: travel, other (power outage) Patient concerns: reports: dry mouth, nose, throat (a little bit). denies: aerophagia, mask discomfort, air blowing in eyes, mask leak noise, condensation in mask/hose, nasal congestion, epistaxis Observed to snore while using device: No Current pressure setting perceived as: comfortable On therapy, patient: reports: sleeping better, awakening more refreshed, being more awake and alert during the day, more rested overall. denies: drowsiness while driving Initial [place] Sleepiness Scale score: 3 (in 2013) Current [place] Sleepiness Scale score: 6 (05/24/22) Allergies and Home Medications Drug allergies reviewed: Yes (see list in EMR) Home medication list reviewed: Yes (no changes) Review of Systems Review of systems same as previous: Yes (Pacemaker placed last year) Physical Exam Vital signs obtained and entered by: SHAMA Castelan MA Blood Pressure: 124/70 (LEFT ARM) Cuff size: regular Heart Rate: 65 O2 Saturation: 95 Height: 6 ft 1 in Weight: 246 lb 12.8 oz Body Mass Index: 32.5 BMI Classification: Obese Impression and Plan 1. Obstructive Sleep Apnea-Hypopnea Syndrome, severe, with good treatment compliance and good apnea control. On CPAP therapy, the patient has better sleep quality and is more rested overall. Patient last updated CPAP through insurance in 2015. We did write to update his device last year but he was never given a new machine. The patients CPAP is over 5 years old and of reasonable use. Thus, the CPAP will be updated. A DWO prescription will be made. Compliance guidelines for new device and follow up discussed. Patient's apnea severity and rationale for treatment to reduce apnea, improve sleep quality and reduce cardiovascular and cerebrovascular events was reviewed. I also reviewed the benefit of consistent device use of CPAP for hypertension, cardiac disease, arrhythmia and diabetes. 2. Obesity, unspecified. Currently patients BMI is 32.5. Obesity increases the risk of apnea, CPAP pressure requirements and overall health risks especially cardiovascular and diabetes. Thus patient is advised to continue to try to lose weight. * Continue auto CPAP pressure at 5-10 cmH2O * Update machine * Update supplies * Notify me if snoring with mask or feeling that the pressure is too much or too little * Attempt to lose weight * Call this office if any problems using CPAP * Return for follow up in 1 year, or sooner if concerns arise Counseling Topics: Spare mask, Weight loss health impact Visit Type: In Office Time Spent with Patient (minutes): 24 Provider Statement: I spent 100% of the Face to Face Visit with the patient with greater than 50% spent counseling the patient and coordination of care.
== END 2022-05-24 10:43 | disposition home or self-care (01) ==
LOC: SC 10:42
PROVIDERS: ATTEND Nurse Practitioner Family
DX: G47.33 Obstructive sleep apnea (adult) (pediatric) (principal); E66.9 Obesity, unspecified; Z68.32 Body mass index [BMI] 32.0-32.9, adult
CPT/HCPCS: 99213; G0463; 99212

== ENCOUNTER 2023-05-08 08:20 | Outpatient (CLI) | payer MEDICARE, OTHER ==
--- NOTE | 2023-05-08 09:00 | Sleep Patient Instructions ---
Sleep Center Visit Summary - Patient Visit Information Reason for Visit: Annual Visit - Patient Instructions Additional Instructions: You will continue with CPAP therapy with pressure changed to 6-12 cmH2O. A supply prescription will be updated with your DME. We encourage you to continue to try to lose weight. Please follow up with the sleep care office in 1 year. - Clinic Information Contact: [facility] [address] [place] [address] [email or web address] T: [phone]
[2023-05-08 09:04] VITALS: BP 129/67; O2SAT 97
--- NOTE | 2023-05-08 09:04 | SLEEP CARE CONSULTATION ---
Information from patient questionnaire entered by Daylin Obrien. I have reviewed and concur with the information entered by Daylin Obrien. This document represents the service I personally performed and the decisions made by me, Alia Cisneros ARNP. History of Present Illness Service Date and Time: 05/08/2023 0820 Previous diagnosis: Severe, Obstructive Sleep Apnea-Hypopnea Syndrome AHI: 45 (in 2009) Reason for follow up: annual (LAST SEEN 05/2022) Equipment type: CPAP (DREAMSTATION 2) Equipment obtained from: [employer] (getting supplies as needed) Mask style: Nasal Mask brand: Respironics (DreamWisp) Backup mask available: Yes (old mask) Last cushion change: 2-3 weeks Prior sleep studies: Yes Year and Where: 2009 - [facility] Type of Sleep Study: Polysomnography HPI additional information: CUAUHTEMOC ABREU JR was diagnosed to have severe, AHI 45, obstructive sleep apnea- hypopnea syndrome and returned today for CPAP therapy annual follow-up. Sleep Study - Results Type of Sleep Study: Polysomnography Prior sleep studies: Yes Year and Where: 2009 - [facility] CPAP Compliance Data - Data Reviewed with Patient Average duration of nightly device use: 7 HRS 12 MINS 53 SECS Compliance rate %: 69.9 (05/03/2023; last 30 days 80%) Current pressure setting (cmH2O): 5-10 Average residual AHI: 2.3 Central apnea: 0 Obstructive apnea: 0.2 Hypopnea: 2.1 Average large leak: 0 secs Compliance data discussion: Data from June to August 2022 was on a different machine. His compliance is higher than recorded, 97% on his [place] [employer] on phone. Subjective Missed days of use due to: reports: other (power outage) Patient concerns: reports: nasal congestion (has this all the time), dry mouth, nose, throat (dry mouth, worse in last month), other (headaches, on and off, not sure if from CPAP). denies: aerophagia, mask discomfort, air blowing in eyes, mask leak noise, condensation in mask/hose, epistaxis Observed to snore while using device: No Current pressure setting perceived as: comfortable On therapy, patient: reports: sleeping better (not as much in last 6 months). denies: drowsiness while driving Initial [place] Sleepiness Scale score: 3 (in 2012) Current [place] Sleepiness Scale score: 14 Allergies and Home Medications Known drug allergies: Yes (as listed) Drug allergies reviewed: Yes Home medication list reviewed: Yes (Terbinafine) Allergy and home medication list: Allergies Penicillins Allergy (Severe, Verified 05/07/23 08:39) Respiratory swelling atorvastatin calcium * [From Lipitor] Allergy (Intermediate, Verified 05/07/23 08:39) Cramps muscle pravastatin Allergy (Intermediate, Verified 05/07/23 08:39) Cramps muscle simvastatin [From Zocor] Allergy (Intermediate, Verified 05/07/23 08:39) Cramps muscle cramps Review of Systems Review of systems same as previous: Yes (no changes) Physical Exam Vital signs obtained and entered by: ALIA ALMAZAN-Annelise Blood Pressure: 129/67 Cuff size: wrist (right) Heart Rate: 60 O2 Saturation: 97 Height: 6 ft 1 in Weight: 234 lb 12.8 oz Body Mass Index: 30.9 BMI Classification: Obese Impression and Plan 1. Obstructive Sleep Apnea-Hypopnea Syndrome, severe, with good treatment compliance and good apnea control. On CPAP therapy, the patient has better sleep quality and is more rested overall. Patient states that lately he has been more tired and is falling asleep while watching TV or at his computer. He has noted on the didier on his phone that his AHI has been going up to 7.5 it times. The patients pressure will be changed to autoCPAP 6-12 cmH20 to try to reduce hypersomnia. Patient advised to contact me if pressure change is uncomfortable so that it can be adjusted. Goals for apnea control discussed. Patient's apnea severity and rationale for treatment to reduce apnea, improve sleep quality and reduce cardiovascular and cerebrovascular events was reviewed. I also reviewed the benefit of consistent device use of CPAP for hypertension, cardiac disease, arrhythmia and diabetes. 2. Obesity, unspecified. Currently patients BMI is 30.9. Obesity increases the risk of apnea, CPAP pressure requirements and overall health risks especially cardiovascular and diabetes. Thus patient is advised to lose weight. * Change auto CPAP pressure to 6-12 cmH2O * Update supply prescription * Notify me if snoring with mask or feeling that the pressure is too much or too little * Attempt to lose weight * Call this office if any problems using CPAP * Return for follow up in 12 months, or sooner if concerns arise Counseling Topics: Spare mask, Weight loss health impact Prescriptions: Device supplies Follow up with Sleep Care in: 1 year Visit Type: In Office Time Spent with Patient (minutes): 26 Provider Statement: I spent 100% of the Face to Face Visit with the patient with greater than 50% spent counseling the patient and coordination of care.
== END 2023-05-08 08:21 | disposition home or self-care (01) ==
LOC: SC 08:20
PROVIDERS: ATTEND Nurse Practitioner Family
DX: G47.33 Obstructive sleep apnea (adult) (pediatric) (principal); E66.9 Obesity, unspecified; Z68.30 Body mass index [BMI] 30.0-30.9, adult
CPT/HCPCS: 99213; G0463; 99212